=== PATIENT | male | born 2005 | race Hispanic/Latino ===

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

== ENCOUNTER 2024-02-08 14:17 | Emergency (ER) | payer MEDICAID, OTHER ==
[~2024-02-08] VITALS: Ht 160 cm; Wt 49.9 kg
[2024-02-08] MEDS ORDERED: ALBUHFA IH (16:56)
[2024-02-08 17:22] VITALS: BP 112/72; PULSE 82; RESP 18; O2SAT 98
== END 2024-02-08 17:23 | disposition home or self-care (01) ==
LOC: EDH 14:17
DX: T59.91XA Toxic effect of unspecified gases, fumes and vapors, accidental (unintentional), initial encounter (principal); J45.909 Unspecified asthma, uncomplicated; X58.XXXA Exposure to other specified factors, initial encounter; Y93.89 Activity, other specified; Y92.89 Other specified places as the place of occurrence of the external cause; Y99.8 Other external cause status

== ENCOUNTER 2025-03-01 04:24 | Observation (INO) | payer OTHER ==
[2025-03-01] VITALS (24 sets, daily range): BP systolic 116–138; BP diastolic 75–90; PULSE 70–120; RESP 13–19; TEMP 97.6–99.5; O2SAT 98–99
[~2025-03-01] VITALS: Ht 165.1 cm; Wt 47.5 kg
[~2025-03-01 04:24] MED LIST: ALBUHFA IH
[2025-03-01 04:54] LABS: BASOPHILS # (AUTO) 0.03 K/uL (0.00-0.20); BASOPHILS % (AUTO) 0.1 % (0.0-5.0); EOSINOPHILS # (AUTO) 0.04 K/uL (0.00-0.70); EOSINOPHILS % (AUTO) 0.2 % (0.0-8.0); HEMATOCRIT 43.7 % (42-54); IMMATURE GRANULOCYTE ABSOLUTE 0.09 K/uL (0-1); LYMPHOCYTES # (AUTO) 2.2 K/uL (1.0-4.8); LYMPHOCYTES % (AUTO) 10.8 % (21.0-51.0); MEAN CORPUSCULAR HEMOGLOBIN 31.2 pg (27.0-33.0); MEAN CORPUSCULAR HGB CONC 35.2 g/dL (32.0-36.0); MEAN CORPUSCULAR VOLUME 88.6 fL (80-100); MONOCYTES # (AUTO) 0.9 K/uL (0.1-1.0); MONOCYTES % (AUTO) 4.5 % (3.0-13.0); NEUTROPHILS # (AUTO) 17.2 K/uL (1.8-7.7); PLATELET COUNT (AUTO) 328 K/uL (130-400); RED BLOOD CELL COUNT(AUTO) 4.93 MIL/uL (4.50-6.20); RED CELL DISTRIBUTION WIDTH 11.6 % (11.0-15.5); WHITE BLOOD COUNT (AUTO) 20.4 K/uL (4.8-10.8)
[2025-03-01 04:57] LABS: ADD UA MICROSCOPIC YES; APPEARANCE,URINE CLEAR (CLEAR); BILIRUBIN,URINE NEGATIVE (NEGATIVE); COLOR,URINE LIGHT-YELLOW (YELLOW); GLUCOSE, URINE (UA) NEGATIVE (NEGATIVE); KETONES,URINE 5 mg/dL (NEGATIVE); LEUKOCYTE ESTERASE ,URINE NEGATIVE Leu/uL (NEGATIVE); NITRATE,URINE NEGATIVE (NEGATIVE); OCCULT BLOOD,URINE NEGATIVE (NEGATIVE); PROTEIN,URINE NEGATIVE (NEGATIVE); UROBILINOGEN,URINE 0.2 mg/dL (0.2-1.0)
[2025-03-01 04:59] LABS: MUCUS,URINE RARE LPF (None Seen); RBC,URINE 0-1 /HPF (0-1); SQUAMOUS EPITHELIAL CELL,UR RARE /HPF (0-2); WBC,URINE 0-1 /HPF (0-1)
--- NOTE | 2025-03-01 05:05 | ERN ---
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 Time Seen by MD: 05:00 Source: patient History of Present Illness Initial Comments Patient is a 19-year-old healthy male up-to-date on vaccinations who was studying when all of a sudden he was overwhelmed with nausea and vomiting for 2 hours. This is the 1st time it has happened. He also has a abdominal pain that is epigastric and also right lower quadrant. No upper respiratory tract infections no change in urination no change in bowel habits. No prior surgeries. Timing/Duration: 1-3 hours Allergies: Coded Allergies: No Known Drug Allergies (Unverified Allergy, Unknown, 11/19/19) Home Meds Active Scripts Albuterol Sulfate (Ventolin Hfa/Proventil Hfa/Proair Hfa) 90 Mcg Puff, 2 PUFF IH Q4H for WHEEZING, #1 INHALER 2 Refills Prov:JOHN OSBORNE Sr., MD 02/08/24 Past Medical History Past Medical History: Asthma Past Surgical History: Unknown Constitutional: (-) chills, (-) diaphoresis, (-) fever, (-) malaise, (-) weakness, (-) other documentation EENTM: (-) eye pain, (-) blurred vision, (-) tearing, (-) double vision, (-) ear pain, (-) ear discharge, (-) nose pain, (-) nose congestion, (-) throat pain, (-) Throat swelling, (-) mouth pain, (-) tooth pain, (-) mouth swelling, (-) other documentation Respiratory: (-) cough, (-) orthopnea, (-) short of breath, (-) stridor, (-) wheezing, (-) other documentation Cardiovascular: (-) chest pain, (-) edema, (-) palpitations, (-) syncope, (-) dyspnea on exertion, (-) other documentation Gastrointestinal/Abdominal: (+) nausea, (+) vomiting, (+) diarrhea Musculoskeletal: (-) Neck pain, (-) back pain, (-) Flank Pain, (-) joint pain, (-) joint swelling, (-) muscle pain, (-) muscle stiffness, (-) gout, (-) other documentation Skin: (-) laceration, (-) contusion, (-) abrasion, (-) abscess, (-) rash, (-) change in color, (-) change in hair, (-) change in nails, (-) diaphoresis, (-) dryness, (-) other documentation Neuro: (-) altered mental status, (-) headache, (-) syncope, (-) paralysis, (-) numbness, (-) seizure, (-) pre-existing deficit, (-) tremors, (-) weakness, (-) dizziness, (-) slurred speech, (-) vertigo, (-) other documentation Physical Exam General Appearance: (+) moderate distress Orientation: (+) alert Head/Face Trauma: No Eye: bilateral eye normal inspection, bilateral eye PERRL, bilateral eye EOMI Ear, Nose, Throat: (+) hearing grossly normal, (+) normal ENT inspection Neck: (+) normal inspection, (+) supple, (+) full range of motion Respiratory: (+) chest non-tender, (+) lungs clear, (+) well ventilated Heart: (+) no gallop, (+) tachycardia Vascular: (+) no edema, (+) normal peripheral pulse Gastrointestinal: (+) soft, (+) bowel sound present, (+) tender, (+) McBerney's Gastrointestinal Comment Patient positive a right lower quadrant pain to heel tap. Positive obturator sign. Negative Rovsing sign no peritoneal signs Results Laboratory and Microbiology Lab and Micro Result Laboratory Tests Test 03/01/25 04:39 03/01/25 04:42 White Blood Count 20.4 K/uL (4.8-10.8) H Red Blood Count 4.93 MIL/uL (4.50-6.20) Hemoglobin 15.4 g/dL (14.0-18.0) Hematocrit 43.7 % (42-54) Mean Corpuscular Volume 88.6 fL (80-100) Mean Corpuscular Hemoglobin 31.2 pg (27.0-33.0) Mean Corpuscular Hemoglobin Concent 35.2 g/dL (32.0-36.0) Red Cell Distribution Width 11.6 % (11.0-15.5) Platelet Count 328 K/uL (130-400) Mean Platelet Volume 9.8 fL (7.5-10.5) Immature Granulocyte % (Auto) 0.4 % (0-1) Neutrophils (%) (Auto) 84.0 % (40.0-77.0) H Lymphocytes (%) (Auto) 10.8 % (21.0-51.0) L Monocytes (%) (Auto) 4.5 % (3.0-13.0) Eosinophils (%) (Auto) 0.2 % (0.0-8.0) Basophils (%) (Auto) 0.1 % (0.0-5.0) Neutrophils # (Auto) 17.2 K/uL (1.8-7.7) H Lymphocytes # (Auto) 2.2 K/uL (1.0-4.8) Monocytes # (Auto) 0.9 K/uL (0.1-1.0) Eosinophils # (Auto) 0.04 K/uL (0.00-0.70) Basophils # (Auto) 0.03 K/uL (0.00-0.20) Absolute Immature Granulocyte (auto 0.09 K/uL (0-1) Nucleated Red Blood Cells 0.0 % (0.0-0.19) Sodium Level 135 mmol/L (136-145) L Potassium Level 3.7 mmol/L (3.5-5.1) Chloride Level 98 mmol/L (101-111) L Carbon Dioxide Level 24 mmol/L (21-32) Blood Urea Nitrogen 10 mg/dL (7-18) Creatinine 0.9 mg/dL (0.5-1.3) Glomerular Filtration Rate Calc 125 mL/min (>90) Random Glucose 124 mg/dL (70-105) H Total Calcium 9.2 mg/dL (8.5-10.1) Lipase 33 U/L (16-77) Urine Color LIGHT-YELLOW (YELLOW) Urine Appearance CLEAR (CLEAR) Urine pH 6.0 (5.0-8.0) Urine Specific [place] 1.022 (1.001-1.031) Urine Protein NEGATIVE mg/dL (NEGATIVE) Urine Glucose (UA) NEGATIVE mg/dL (NEGATIVE) Urine Ketones 5 mg/dL (NEGATIVE) H Urine Occult Blood NEGATIVE (NEGATIVE) Urine Nitrate NEGATIVE (NEGATIVE) Urine Bilirubin NEGATIVE mg/dL (NEGATIVE) Urine Urobilinogen 0.2 mg/dL (0.2-1.0) Urine Leukocyte Esterase NEGATIVE Chaz/uL Urine RBC 0-1 /HPF (0-1) Urine WBC 0-1 /HPF (0-1) Urine Squamous Epithelial Cells RARE /HPF (0-2) Urine Bacteria None /HPF (None Seen) MDM Patient with diffuse abdominal pain but also right lower quadrant abdominal pain. Differential could include gastroenteritis dehydration appendicitis. I will give the patient some pain medications some fluid we will do usual chemistry and CBC. Also a UA and probably a CT abdomen pelvis with IV contrast. Patient's white blood cell count is quite high suggesting gastroenteritis. Patient's CT scan is positive for uncomplicated appendicitis. Patient's chemistry panel is normal. I have talked to the general surgeon on-call today he agrees to see the patient he would like the patient admitted to the hospitalist service with him as a consult. I have talked to Internal Medicine MD who will accept the patient. ED Course Orders Procedure Category Date Status Time Vital Signs Per CPOE 03/01/25 Transmitted Routine 04:40 Saline Lock Iv CPOE 03/01/25 Transmitted 04:40 Cbc With Differential LAB 03/01/25 Complete 04:40 Lipase LAB 03/01/25 Complete 04:40 Urinalysis Profile LAB 03/01/25 Complete 04:40 Basic Metabolic Panel LAB 03/01/25 Complete 04:40 Famotidine 20mg Vial PHA 03/01/25 Complete (Pepcid 20mg Vial) 05:30 Hydromorphone 1 Mg PHA 03/01/25 Complete Inj (Dilaudid 1mg Inj 05:30 0.9%Nacl 1000ml (Ns PHA 03/01/25 Complete 1000ml) 05:30 Ct Abdomen/Pelvis CT 03/01/25 Taken W/Wo Contras 05:06 Iohexol (Omnipaque) PHA 03/01/25 Complete 06:07 Zosyn 3.375gm+Ns 50ml PHA 03/01/25 Logged (Zosyn 3.375gm+Ns 07:07 Current Medications Medications (Trade) Dose Ordered Sig/Norma Route PRN Reason Start Time Stop Time Status Last Admin Dose Admin Famotidine (Pepcid 20mg Vial) 20 mg ONCE ONCE IV 03/01/25 05:30 03/01/25 05:31 DC 03/01/25 05:12 Hydromorphone HCl (DiLAUDid 1MG INJ) 1 mg ONCE ONCE IVP 03/01/25 05:30 03/01/25 05:31 DC 03/01/25 05:12 Iohexol (Omnipaque) 35,000 mg STK-MED ONCE IV 03/01/25 06:07 03/01/25 06:07 DC Piperacillin Sod/ Tazobactam Sod (Zosyn 3.375gm+NS 50ml) 3.375 gm NOW STAT IV 03/01/25 07:07 03/01/25 07:08 UNV Sodium Chloride 1,000 ml @ 0 mls/hr ONCE ONCE IV 03/01/25 05:30 03/01/25 05:31 DC 03/01/25 05:12 Vital Signs Date Time Temp Pulse Resp B/P (MAP) Pulse Ox O2 Delivery O2 Flow Rate FiO2 03/01/25 06:28 97.9 78 14 119/67 99 Room Air* 0 21 03/01/25 05:36 97.9 81 15 120/70 99 Room Air* 0 03/01/25 04:45 99.0 70 19 138/88 100 Room Air* 0 03/01/25 04:25 97.5 73 20 129/85 100 Room Air DX & DISP Disposition: Inpatient Departure Impression: Primary Impression: Appendicitis Condition: Stable Referrals: SHOLA GARVEY MD (PCP) SARI ESPINAL MD March 01, 2025 05:05
[2025-03-01 05:07] LABS: CREATININE 0.9 mg/dL (0.5-1.3); POTASSIUM 3.7 mmol/L (3.5-5.1)
[2025-03-01] MEDS: FAMOTIDINE 20MG VIAL IV ONE (05:12)
[2025-03-01] MEDS: hydroMORPHone 1 MG INJ IVP ONE (05:12)
[2025-03-01] MEDS: 0.9%NACL 1000ML 1,000 ML IV ONE (05:12)
[2025-03-01] MEDS ORDERED: IOHEXOL 350 MG/ML 100ML INFUS..BTL IV ONE (06:07)
[2025-03-01] MEDS: ZOSYN 3.375GM +NS 50ML IV SCH ×2 (08:00→21:39)
[2025-03-01] MEDS: ZOSYN 3.375GM +NS 50ML IV ONE (08:05)
[2025-03-01] MEDS: DEXTROSE 5 %-0.45 % NACL 1,000 ML IV SCH (08:09)
[2025-03-01] MEDS: morPHINE 2 MG SYG IVP PRN (08:26)
[2025-03-01] MEDS: ondanSETRON 4MG INJ IVP PRN (08:26)
--- NOTE | 2025-03-01 09:18 | HMCIMG ---
CT ABDOMEN/PELVIS W/WO CONTRAS HISTORY: Right lower abdominal pain COMPARISON: None TECHNIQUE: Multiple sequential axial images of the abdomen and pelvis were obtained from the dome of the diaphragm through symphysis pubis. Patient was given 100 cc of Isovue through intravenous route. Oral contrast was not given. FINDINGS: No pleural effusion is seen bilaterally. There is no evidence of parenchymal disease or pulmonary nodule of the visualized lower lungs. The heart is not enlarged. Liver measures 17 cm. The liver, spleen, adrenal glands and pancreas are unremarkable. There is no evidence of hydronephrosis bilaterally. No evidence of renal stone is seen. Fecal material is seen in the colon. There are normal size retroperitoneal and mesenteric lymph nodes. No ascites is seen. Appendix is dilated measuring 9 mm in cross-sectional dimension. Adjacent mesenteric fat stranding is seen. Findings are suggestive of acute appendicitis in the proper clinical setting. Nonspecific colon wall thickening is seen. Pelvic sidewalls are symmetric bilaterally. Bladder is well distended without wall thickening. IMPRESSION: 1. Findings suspicious for acute appendicitis in the proper clinical setting. Nonspecific colonic wall thickening is also seen. Fecal material is seen in the colon. CT was performed with one or more following dose reduction techniques: automated exposure control, adjustment of the mA and kv according to patient's size, or use of a iterative reconstruction technique.
[2025-03-01] MEDS: acetaMINOPHEN 325 MG TAB PO ONE (13:21)
[2025-03-01] MEDS: morPHINE 4 MG SYG IVP PRN (13:21)
[2025-03-01] MEDS ORDERED: acetaMINOPHEN 325 MG TAB PO PRN (13:30)
[2025-03-01] MEDS ORDERED: LIDOCAINE HCL 1% 20 ML VIAL ONE (18:41)
[2025-03-01] MEDS ORDERED: BUPIvacaine/PF 0.25% 30ML VIAL IJ ONE (18:41)
[2025-03-01] MEDS ORDERED: ceFAZolin SODIUM 1 GM VIAL ONE ×2 (18:42→19:32)
[2025-03-01] MEDS ORDERED: LIDOCAINE PF 100MG/5ML (2%) SYRINGE 5ML ONE (18:58)
[2025-03-01] MEDS ORDERED: MIDAZOLAM HCL 1 MG/ML 2ML VIAL ONE (18:59)
[2025-03-01] MEDS ORDERED: rocuRONium bROMide 10MG/1ML 5ML VL ONE (18:59)
[2025-03-01] MEDS ORDERED: FENTanyl CITRate PF 50 MCG/1 ML 2ML VIAL ONE (18:59)
[2025-03-01] MEDS ORDERED: proPOFol 10 MG/ML 20ML VIAL IV ONE (18:59)
[2025-03-01] MEDS ORDERED: SUGAMMADEX SODIUM 200 MG/2 ML VIAL IV ONE (19:01)
--- NOTE | 2025-03-01 19:19 | CONS ---
GENERAL SURGERY CONSULTATION NOTE DATE OF CONSULTATION: March 01, 2025 TIME OF CONSULTATION: 19:19 CONSULTING SERVICE: Karlee Arambula MD REQUESTING PHYSICAIN: [ ] REASON FOR CONSULTATION: [ ] Abdominal pain Acute appendicitis HISTORY OF PRESENT ILLNESS: [ ]19-year-old male who presented with abdominal pain Pain started few days ago Associated with nausea and vomiting He has never had this kind of pain before PAST MEDICAL HISTORY: [ ] none PAST SURGICAL HISTORY: none FAMILY HISTORY: [ ] no family history of hypertension or diabetes SOCIAL HISTORY: [ ] no smoking No alcohol Current Medications Medications (Trade) Dose Ordered Sig/Norma Route Start Time Stop Time Status Last Admin Dose Admin Dextrose/Sodium Chloride 1,000 ml @ 75 mls/hr [id number] IV 03/01/25 07:30 03/31/25 07:29 03/01/25 08:09 75 MLS/HR Piperacillin Sod/ Tazobactam Sod (Zosyn 3.375gm+NS 50ml) 3.375 gm Q8H IV 03/01/25 08:00 03/01/25 18:11 DC Piperacillin Sod/ Tazobactam Sod (Zosyn 3.375gm+NS 50ml) 3.375 gm Q8H IV 03/01/25 20:00 03/11/25 19:59 Allergies: Coded Allergies: No Known Drug Allergies (Unverified Allergy, Unknown, 11/19/19) 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 PHYSICAL EXAMINATION: GENERAL: [Patient is lying comfortably in bed, not in any obvious distress.] HEAD: [Normal with no signs of head trauma.] EYES: [Not pale not jaundiced afebrile to touch.] ENT: [ Normal.] NECK: [Supple,no tenderness,no lymphadenopathy,no masses,no thyromegaly ,no bruits, no JVD.] LUNGS: [Clear breath sounds bilaterally. No wheezes, rales, or rhonchi.] HEART: [Regular rate and rhythm. Normal S1 and S2, without murmurs, rub or gallop.] VASC: [No edema. Peripheral pulses normal and equal in all extremities.] ABD: [Bowel sounds present,soft, Right lower quadrant tendernessr, no masses, no organomegaly.] : [Normal, no suprapubic tenderness.] LYMPH: [No lymphadenopathy noted.] EXT: [ Warm soft, non tender.] SKIN: [ No rashes or lesions.] NEURO: [ Awake Alert and oriented x3.] Vital Signs (last 8hr) Date Time Temp Pulse Resp B/P (MAP) Pulse Ox O2 Delivery O2 Flow Rate FiO2 03/01/25 16:00 98.8 70 19 138/84 98 Room Air 03/01/25 13:21 99.5 03/01/25 12:00 97.5 70 19 123/77 97 Room Air LABORATORY: [ ] Hematology Labs: Test 03/01/25 04:39 Range/Units White Blood Count 20.4 H 4.8-10.8 K/uL Red Blood Count 4.93 4.50-6.20 MIL/uL Hemoglobin 15.4 14.0-18.0 g/dL Hematocrit 43.7 42-54 % Mean Corpuscular Volume 88.6 80-100 fL Mean Corpuscular Hemoglobin 31.2 27.0-33.0 pg Mean Corpuscular Hemoglobin Concent 35.2 32.0-36.0 g/dL Red Cell Distribution Width 11.6 11.0-15.5 % Platelet Count 328 130-400 K/uL Mean Platelet Volume 9.8 7.5-10.5 fL Immature Granulocyte % (Auto) 0.4 0-1 % Neutrophils (%) (Auto) 84.0 H 40.0-77.0 % Lymphocytes (%) (Auto) 10.8 L 21.0-51.0 % Monocytes (%) (Auto) 4.5 3.0-13.0 % Eosinophils (%) (Auto) 0.2 0.0-8.0 % Basophils (%) (Auto) 0.1 0.0-5.0 % Neutrophils # (Auto) 17.2 H 1.8-7.7 K/uL Lymphocytes # (Auto) 2.2 1.0-4.8 K/uL Monocytes # (Auto) 0.9 0.1-1.0 K/uL Eosinophils # (Auto) 0.04 0.00-0.70 K/uL Basophils # (Auto) 0.03 0.00-0.20 K/uL Absolute Immature Granulocyte (auto 0.09 0-1 K/uL Nucleated Red Blood Cells 0.0 0.0-0.19 % Chemistry Labs: Test 03/01/25 04:39 Range/Units Sodium Level 135 L 136-145 mmol/L Potassium Level 3.7 3.5-5.1 mmol/L Chloride Level 98 L 101-111 mmol/L Carbon Dioxide Level 24 21-32 mmol/L Blood Urea Nitrogen 10 7-18 mg/dL Creatinine 0.9 0.5-1.3 mg/dL Glomerular Filtration Rate Calc 125 >90 mL/min Random Glucose 124 H 70-105 mg/dL Total Calcium 9.2 8.5-10.1 mg/dL Lipase 33 16-77 U/L DIAGNOSTICS / RADIOLOGY: [Copy/Paste Echos/Imaging Report here] ASSESSMENT: [] Acute appendicitis PLAN: [] NPO/IVF/IV ANTIOBIOTICS Schedule for OR We talked about various treatment options including but not limited to surgery. We talked about risks and benefits of surgery, patient verbalized understanding has agreed to proceed [ ]. We will schedule [ laparoscopic appendectomy possible open]. KARLEE ARAMBULA MD March 01, 2025 19:19
[2025-03-01] MEDS ORDERED: dexaMETHasone SOD PHOSPHATE 4 MG/ML 1ML VIAL ONE (19:26)
[2025-03-01] MEDS ORDERED: ondanSETRON 4MG INJ ONE (19:27)
[2025-03-01] MEDS ORDERED: phenylEPHRINE HCL 10 MG/ML 1ML VIAL IV ONE (19:28)
[2025-03-01] MEDS: ceFAZolin SODIUM 2 GM VIAL IVPB ONE (19:30)
[2025-03-01] MEDS ORDERED: ZOSYN 3.375GM +NS 50ML IV SCH (20:00)
--- NOTE | 2025-03-01 20:02 | OP ---
OPERATIVE NOTE: DATE OF SERVICE: 03/01/25 PREOPERATIVE DIAGNOSIS: Acute appendicitis. POSTOPERATIVE DIAGNOSIS: Acute appendicitis. PROCEDURE PERFORMED: Laparoscopic appendectomy. SURGEON: Karlee Arambula MD ANESTHESIA: General. ESTIMATED BLOOD LOSS: Minimal. FINDINGS: Acutely inflamed elongated appendix. SPECIMEN REMOVED: Appendix. COMPLICATIONS: None. DESCRIPTION OF PROCEDURE: The patient was brought into the Operating Room. After proper identification, the patient was placed on the operating table in the supine position. General anesthesia was then administered and the patient was endotracheally intubated. Attention was then focussed in the area of the abdomen. The same was prepped and draped in the usual sterile fashion. An appropriate time-out was then carried out at this point. Then, I proceeded by making a supraumbilical incision. The incision was carried through skin and subcutaneous tissue till the fascia was identified. Fascia was then carefully incised. Stay stitches were placed on either side of the fascia and the Hiro port was then introduced. The CO2 was then insufflated into the abdomen and the laparoscope was then introduced. Inspection of the abdomen showed evidence of right lower quadrant inflammation and elongated inflamed appendix. So, at this point, I proceeded by placing 2 additional ports, one in the suprapubic region and one in the left lower quadrant. The patient was then placed in Trendelenburg position and rotated to his left. The appendix was then grasped and the attachment of the appendix to the lateral wall was then taken down using the Harmonic scalpel. Once this was done, the mesoappendix was then opened and the appendiceal vessels were then taken using the vascular load of the Endo HONEY. The appendix itself was then taken from the base of the cecum using the tissue load of the Endo HONEY. The specimen was then delivered using an Endopouch. Copious amount of irrigation was carried out at this point. Hemostasis was noted to be adequate. Then I proceeded by closing the wound. Ports were withdrawn under vision. CO2 was let out of the abdomen and the supraumbilical fascia was approximated together using 0 Vicryl [id number] stitches and the skin was approximated together using 4-0 Monocryl subcuticular closure. Steri-Strips and sterile dressings were then applied. Instrument and sponges count were found to be correct x2. The patient was then woken up, extubated and taken to Recovery Room in stable condition. The patient tolerated the procedure well. KARLEE ARAMBULA MD March 01, 2025 20:02
[2025-03-01] MEDS: MEPERIDINE-PF 50 MG/ML SYG ONE (20:26)
[2025-03-01] MEDS ORDERED: hydroMORPHone 1 MG INJ IVP PRN (21:30)
[2025-03-01] MEDS: oxyCODONE/aceTAMIN 5/325MG TAB PO PRN (23:39)
[2025-03-02] VITALS (10 sets, daily range): BP systolic 105–126; BP diastolic 66–81; PULSE 73–84; RESP 17–20; TEMP 97.5–98.4; O2SAT 98–99
--- NOTE | 2025-03-02 04:37 | HP ---
HISTORY OF PRESENT ILLNESS: The patient of Dr. Rodriguez. He came to the Emergency Room complaining of sudden onset of epigastric pain, radiated towards the right lower quadrant since last night, associated with non-quantified fever, chills, nausea without vomiting. Pain has worsened in the last few hours. He came to the Emergency Room where he was evaluated and was diagnosed with acute appendicitis. Surgery was called, was called also to admit the patient. PAST MEDICAL HISTORY: Noncontributory. ALLERGIES: None. MEDICATIONS: None. REVIEW OF SYSTEMS: Having no fevers, chills, or seizures. No chest pain, palpitations, cough, or rhonchi. No nausea, vomiting, or diarrhea. No dysuria or urgency. No rashes, petechiae, or ecchymoses. PHYSICAL EXAMINATION: HEENT: Normocephalic, atraumatic. LUNGS: Clear to auscultation. HEART: S1 and S2 are distal. ABDOMEN: Mild diffuse tenderness. Right lower quadrant with exquisite tenderness to deep palpation with positive rebound. Bowel sounds present. EXTREMITIES: No clubbing or cyanosis. No edema. LABORATORY DATA: WBC count 20,000, hemoglobin 15.4, platelets 328. BUN 10, creatinine 0.9, glucose 124, lipase 33. Urinalysis within normal limits. DIAGNOSTIC IMAGING: Abdominal CT scan report findings suspicious for acute appendicitis. ASSESSMENT AND PLAN: * Acute appendicitis. Surgical consultation has been made. The patient is cleared for surgery. * Leukocytosis. He had been started on Zosyn. We will continue with the same. Follow up in a.m. with labs. DOS:03/01/2025 TID: [id number] RECEIPT: [id number] [facility] CENTERAndrew
[2025-03-02 04:59] LABS: BASOPHILS # (AUTO) 0.03 K/uL (0.00-0.20); BASOPHILS % (AUTO) 0.2 % (0.0-5.0); HEMATOCRIT 39.9 % (42-54); LYMPHOCYTES # (AUTO) 0.6 K/uL (1.0-4.8); LYMPHOCYTES % (AUTO) 3.5 % (21.0-51.0); MEAN CORPUSCULAR HEMOGLOBIN 31.4 pg (27.0-33.0); MEAN CORPUSCULAR HGB CONC 34.8 g/dL (32.0-36.0); MEAN CORPUSCULAR VOLUME 90.1 fL (80-100); MONOCYTES # (AUTO) 0.6 K/uL (0.1-1.0); MONOCYTES % (AUTO) 3.7 % (3.0-13.0); NEUTROPHILS # (AUTO) 15.8 K/uL (1.8-7.7); PLATELET COUNT (AUTO) 266 K/uL (130-400); RED BLOOD CELL COUNT(AUTO) 4.43 MIL/uL (4.50-6.20); RED CELL DISTRIBUTION WIDTH 11.8 % (11.0-15.5); WHITE BLOOD COUNT (AUTO) 17.1 K/uL (4.8-10.8)
[2025-03-02 05:14] LABS: ALBUMIN 3.8 g/dL (3.5-5.0); BILIRUBIN,TOTAL 0.9 mg/dL (0.2-1.0); POTASSIUM 4.3 mmol/L (3.5-5.1); TOTAL PROTEIN, SERUM 7.5 g/dL (6.0-8.3)
--- NOTE | 2025-03-02 10:02 | NUR ---
DCP: HOME Pt currently lives with his parents, mother Stephanie Montes [phone] was at bedside. Pt denied any insecurities with food, assisted, and/or utilities. Pt does not have any DME, home health, or provider service. Pt is able to complete ADLs independently. PCP is Dr. Jacque Rodriguez. At [place] pt will return home and mom will assist with transportation. Addendum: 03/02/25 at 1004 by STEPHANIE BAE SS Amended: Links added.
--- NOTE | 2025-03-02 22:14 | PN ---
SUBJECTIVE: The patient is status post laparoscopic appendectomy. Denies any nausea or vomiting. Had a low-grade fever last night. Continued with IV Zosyn. He is currently awake, alert and oriented in person, time, and place. OBJECTIVE: VITAL SIGNS: Blood pressure 121/67, pulse 77, respirations 18. HEENT: Normocephalic, atraumatic. LUNGS: Clear to auscultation. HEART: S1, S2 are distant. ABDOMEN: Mild diffuse tenderness. Surgical wounds are clean. Bowel sounds present. LABORATORY DATA: WBC count down to 17,000, hemoglobin 13.9, platelets 266. Sodium 141, potassium 4.3, BUN 5, creatinine 1. LFTs within normal limits. ASSESSMENT AND PLAN: * Acute appendicitis, status post appendectomy. Continue recommendations by Surgery. Continue DVT prophylaxis, GI prophylaxis, pulmonary prophylaxis. * Leukocytosis. Continue with Zosyn. Follow up in a.m. with labs. * Postoperative ileus, resolved. The patient is tolerating oral intake and he is also passing gas. Follow up in a.m. DOS:03/02/2025 TID: [id number] RECEIPT: [id number] [facility]TDD
[2025-03-03 00:11] VITALS: BP 121/55; PULSE 78; RESP 18; TEMP 98
[2025-03-03 04:00] VITALS: BP 110/58; PULSE 80; RESP 18; TEMP 98.1
[2025-03-03 07:28] LABS: BASOPHILS # (AUTO) 0.02 K/uL (0.00-0.20); BASOPHILS % (AUTO) 0.2 % (0.0-5.0); EOSINOPHILS # (AUTO) 0.03 K/uL (0.00-0.70); EOSINOPHILS % (AUTO) 0.4 % (0.0-8.0); HEMATOCRIT 39.1 % (42-54); IMMATURE GRANULOCYTE ABSOLUTE 0.02 K/uL (0-1); LYMPHOCYTES # (AUTO) 1.7 K/uL (1.0-4.8); LYMPHOCYTES % (AUTO) 20.3 % (21.0-51.0); MEAN CORPUSCULAR HEMOGLOBIN 31.3 pg (27.0-33.0); MEAN CORPUSCULAR VOLUME 89.3 fL (80-100); MONOCYTES # (AUTO) 0.7 K/uL (0.1-1.0); MONOCYTES % (AUTO) 7.9 % (3.0-13.0); NEUTROPHILS # (AUTO) 5.9 K/uL (1.8-7.7); PLATELET COUNT (AUTO) 284 K/uL (130-400); RED BLOOD CELL COUNT(AUTO) 4.38 MIL/uL (4.50-6.20); RED CELL DISTRIBUTION WIDTH 11.9 % (11.0-15.5); WHITE BLOOD COUNT (AUTO) 8.4 K/uL (4.8-10.8)
[2025-03-03 07:39] LABS: ALBUMIN 3.6 g/dL (3.5-5.0); BILIRUBIN,TOTAL 0.7 mg/dL (0.2-1.0); POTASSIUM 3.7 mmol/L (3.5-5.1); TOTAL PROTEIN, SERUM 7.2 g/dL (6.0-8.3)
[2025-03-03 08:00] VITALS: BP 113/58; PULSE 77; RESP 18; TEMP 98.4; O2SAT 97
--- NOTE | 2025-03-03 09:40 | PN ---
GENERAL SURGERY PROGRESS NOTE DATE OF SERVICE: March 03, 2025 TIME OF SERVICE: 09:40 Pain at the site of the incision PROBLEM LISTS: [ ] S/p laparoscopic appendectomy INTERVAL HISTORY: [ ] PHYSICAL EXAMINATION: GENERAL: [Patient is lying comfortably in bed, not in any obvious distress.] HEAD: [Normal with no signs of head trauma.] EYES: [Not pale not jaundiced afebrile to touch.] ENT: [ Normal.] NECK: [Supple,no tenderness,no lymphadenopathy,no masses,no thyromegaly ,no bruits, no JVD.] LUNGS: [Clear breath sounds bilaterally. No wheezes, rales, or rhonchi.] HEART: [Regular rate and rhythm. Normal S1 and S2, without murmurs, rub or gallop.] VASC: [No edema. Peripheral pulses normal and equal in all extremities.] ABD: [Dressings intact : [Normal, no suprapubic tenderness.] LYMPH: [No lymphadenopathy noted.] EXT: [ Warm soft, non tender.] SKIN: [ No rashes or lesions.] NEURO: [ Awake Alert and oriented x3.] LABORATORY: [ ] Hematology Labs: Test 03/03/25 07:19 03/02/25 04:50 Range/Units White Blood Count 8.4 4.8-10.8 K/uL Red Blood Count 4.38 L 4.50-6.20 MIL/uL Hemoglobin 13.7 L 14.0-18.0 g/dL Hematocrit 39.1 L 42-54 % Mean Corpuscular Volume 89.3 80-100 fL Mean Corpuscular Hemoglobin 31.3 27.0-33.0 pg Mean Corpuscular Hemoglobin Concent 35.0 32.0-36.0 g/dL Red Cell Distribution Width 11.9 11.0-15.5 % Platelet Count 284 130-400 K/uL Mean Platelet Volume 9.5 7.5-10.5 fL Immature Granulocyte % (Auto) 0.2 0-1 % Neutrophils (%) (Auto) 71.0 40.0-77.0 % Lymphocytes (%) (Auto) 20.3 L 21.0-51.0 % Monocytes (%) (Auto) 7.9 3.0-13.0 % Eosinophils (%) (Auto) 0.4 0.0-8.0 % Basophils (%) (Auto) 0.2 0.0-5.0 % Neutrophils # (Auto) 5.9 1.8-7.7 K/uL Lymphocytes # (Auto) 1.7 1.0-4.8 K/uL Monocytes # (Auto) 0.7 0.1-1.0 K/uL Eosinophils # (Auto) 0.03 0.00-0.70 K/uL Basophils # (Auto) 0.02 0.00-0.20 K/uL Absolute Immature Granulocyte (auto 0.02 0-1 K/uL Nucleated Red Blood Cells 0.0 0.0-0.19 % White Cell Morphology Comment See comments Chemistry Labs: Test 03/03/25 07:19 Range/Units Sodium Level 141 136-145 mmol/L Potassium Level 3.7 3.5-5.1 mmol/L Chloride Level 104 101-111 mmol/L Carbon Dioxide Level 30 21-32 mmol/L Blood Urea Nitrogen 7 7-18 mg/dL Creatinine 1.0 0.5-1.3 mg/dL Glomerular Filtration Rate Calc 111 >90 mL/min Random Glucose 92 70-105 mg/dL Total Calcium 8.7 8.5-10.1 mg/dL Total Bilirubin 0.7 0.2-1.0 mg/dL Aspartate Amino Transf (AST/SGOT) 15 10-37 U/L Alanine Aminotransferase (ALT/SGPT) 12 12-78 U/L Alkaline Phosphatase 44 L 50-136 U/L Total Protein 7.2 6.0-8.3 g/dL Albumin 3.6 3.5-5.0 g/dL DIAGNOSTICS / RADIOLOGY: [Copy/Paste Echos/Imaging Report here] ASSESSMENT: [] S/p laparoscopic appendectomy PLAN: [] advance diet DC planning Follow-up in my office in two weeks KARLEE DA SILVA MD March 03, 2025 09:40
[2025-03-03] MEDS: MAGNESIUM CITRATE 296 ML SOLUTION PO ONE (11:15)
[2025-03-03 12:00] VITALS: BP 124/70; PULSE 75; RESP 18; TEMP 98.2
[2025-03-03 16:00] VITALS: BP 122/62; PULSE 82; RESP 19; TEMP 98.2
== END 2025-03-03 20:20 | disposition home or self-care (01) ==
LOC: EDH 04:24 → EDHIP 04:25 → INTOOBSV 04:25 → 3BH 08:53
PROVIDERS: ADMIT Internal Medicine; ATTEND Internal Medicine
DX: K35.80 Unspecified acute appendicitis (principal); D72.829 Elevated white blood cell count, unspecified; J45.909 Unspecified asthma, uncomplicated; Z79.899 Other long term (current) drug therapy
CPT/HCPCS: 44970; 96376; 96365; 96366 ×5; 96375; 99285; 80048; 83690; 85025 ×3; 81001; 36415 ×3; 88304; 74178; 80053 ×2; J7030 ×2; J7120; A4344; J3490 ×3; J3010; J0690 ×4; J1171; J2270 ×2; J0665; J2003; J2250; J2704; J2405 ×2; J2543 ×6; J1100; J2175; J2371; Q9967; C1769 ×3; A4649 ×4; A4930; A4223; A4222; G0378 ×29; L0625